=== PATIENT | male | born 1955 | race Hispanic/Latino ===

== ENCOUNTER 2018-05-16 16:37 | Emergency (ER) | payer MEDICARE ==
[2018-05-16 16:39] VITALS: BMI 42.1
[2018-05-16 16:57] VITALS: RESP 18; TEMP 97.9
[2018-05-16] MEDS ORDERED: Bacitracin 500 Units/gm Oint Foilpak UD TOP ONE (16:58)
[2018-05-16] MEDS ORDERED: Morphine 4 mg/ml ISec IVP STA ×2 (16:58→19:16)
[2018-05-16] MEDS ORDERED: Lidocaine 1% Inj (20ml) SC STA (17:00)
--- NOTE | 2018-05-16 17:02 | ED PDOC ---
Arrival/HPI - General Chief Complaint: Trauma Time Seen by Provider: 05/16/18 16:40 Historian: Patient - History of Present Illness Narrative History of Present Illness (Text): 05/16/18 16:58 62 year old male, whose past medical history includes cardiomyopathy, sleep apnea, and A fibrillation, who presents to the Emergency department complaining of rt arm, rt shoulder, and rt rib pain. 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 Patient states he fell on the right side of his upper body and heard a crack. Patient denies any head trauma, LOC, chest pain, shortness of breath, abdominal pain, nausea, vomiting, diarrhea, back pain, neck pain, headache, dizziness, or any other complaint. Time/Duration: Prior to Arrival Symptom Onset: Sudden Symptom Course: Unchanged Activities at Onset: Light Context: Home Past Medical History - Provider Review Nursing Documentation Reviewed: Yes - Cardiac Hx Hypertension: Yes - Pulmonary Hx Chronic Obstructive Pulmonary Disease (COPD): Yes - Psychiatric Hx Depression: Yes Hx Substance Use: No - Surgical History Hx Open Heart Surgery: Yes (with valve replacement) Hx Valve Replacement: Yes Other/Comment: Defibrillator Family/Social History - Physician Review Nursing Documentation Reviewed: Yes Family/Social History: Unknown Family HX Smoking Status: Never Smoked Hx Alcohol Use: No Hx Substance Use: No Allergies/Home Meds Allergies/Adverse Reactions: Allergies furosemide [From Lasix] Allergy (Verified 05/16/18 16:39) ANAPHYLAXIS Penicillins Allergy (Verified 05/16/18 16:39) ANAPHYLAXIS Home Medications: Home Meds Medication Instructions Recorded Confirmed ALPRAZolam [Xanax] 0.25 mg PO DAILY PRN 05/16/18 05/16/18 Budesonide/Formoterol Fumarate 2 puff NEB BID 05/16/18 05/16/18 [Symbicort 160-4.5 Mcg Inhaler] Carvedilol [Coreg] 25 mg PO DAILY 05/16/18 05/16/18 Cetirizine HCl [Zyrtec] 10 mg PO DAILY 05/16/18 05/16/18 FLUoxetine [Prozac] 20 mg PO DAILY 05/16/18 05/16/18 Magnesium Oxide [Mag-Ox] 800 mg PO DAILY 05/16/18 05/16/18 Montelukast [Singulair] 10 mg PO DAILY 05/16/18 05/16/18 Sotalol HCl [Betapace AF] 160 mg PO BID 05/16/18 05/16/18 Spironolactone [Aldactone] 12.5 mg PO DAILY 05/16/18 05/16/18 Warfarin [Coumadin] 4 mg PO DAILY 05/16/18 05/16/18 Review of Systems - Physician Review All systems were reviewed & negative as marked: Yes - Review of Systems Constitutional: Normal ENT: Normal Respiratory: Normal. absent: SOB, Cough Cardiovascular: Normal. absent: Chest Pain Gastrointestinal: Normal. absent: Abdominal Pain, Diarrhea, Nausea, Vomiting Genitourinary Male: Normal. absent: Frequency, Hematuria Musculoskeletal: Other (rt arm/shoulder/rib pain). absent: Back Pain, Neck Pain Skin: Normal. absent: Rash Neurological: Normal. absent: Headache, Dizziness Endocrine: Normal Hemo/Lymphatic: Normal Psychiatric: Normal Physical Exam Vital Signs Reviewed: Yes Vital Signs Temp Pulse Resp BP Pulse Ox 05/16/18 16:54 97.9 F 60 18 134/65 96 Temperature: Afebrile Blood Pressure: Normal Pulse: Regular Respiratory Rate: Normal Appearance: Positive for: Well-Appearing, Non-Toxic, Comfortable Pain Distress: None Mental Status: Positive for: Alert and Oriented X 3 - Systems Exam Head: Present: Atraumatic, Normocephalic Pupils: Present: PERRL Extroacular Muscles: Present: EOMI Conjunctiva: Present: Normal Mouth: Present: Moist Mucous Membranes Neck: Present: Normal Range of Motion Respiratory/Chest: Present: Clear to Auscultation, Good Air Exchange, Other (tenderness to rt mid-lateral ribs; tenderness to rt anterior upper ribs). No: Respiratory Distress, Accessory Muscle Use Cardiovascular: Present: Regular Rate and Rhythm, Normal S1, S2. No: Murmurs Abdomen: No: Tenderness, Distention, Peritoneal Signs Back: Present: Normal Inspection Upper Extremity: Present: Normal Inspection. No: Cyanosis, Edema Lower Extremity: Present: Normal Inspection. No: Edema Neurological: Present: GCS=15, CN II-XII Intact, Speech Normal Skin: Present: Warm, Dry, Laceration (1/2cm laceration to the rt fourth finger tip), Abrasion (abrasion rt 3rd finger; abrasion to rue and left hand). 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 Plan: -- CT Chest -- EKG -- Labs -- Bacitracin -- Lidocaine -- Morphine -- Xray rt elbow -- Xray rt humerus -- Xray rt shoulder -- Reassess and disposition Progress Notes: 05/16/18 17:45 EKG reviewed, shows PAC rhythm at 61 bpm. 05/16/18 18:51 CT Chest reviewed, shows: LUNGS: The lungs appear essentially clear. No pulmonary mass. There is mild scarring lower lungs. There is minimal pleura l thickening at the lung bases. PLEURAL SPACES: No pneumothorax evident. No pleural effusions. Minimal pleural thickening lung bases. HEART: Multichamber enlargement of the heart. Left cardiac patient pacing wires present. Sternotomy wires present. LYMPH NODES: No lymphadenopathy is evident. BONES: Diffuse advanced hypertrophic and degenerative changes thoracic spine. There is no definite acute fracture identified. UPPER ABDOMEN: The upper abdominal solid organs are unremarkable. IMPRESSION: No acute pulmonary parenchymal disease. Scarring both lower lungs. Pleural thickening at the lung bases. Multichamber enlargement of the heart. Atherosclerotic changes. Cardiac patient pacing wires present. Sternotomy wires. Hypertrophic and degenerative changes thoracic spine. 05/16/18 19:09 Both finger wounds washed and irrigated. No need for sutures. Fingers wrapped with non-adhesive gauze. Bacitracin was applied and fingers wrapped. Bacitracin applied to rt arm and left hand. Tetanus ordered. Wound care instructions were given. Incentive spirometer given with instructions. Pt to f/u with PMD and advised to return to the ED if symptoms worsen or any other concern. - Scribe Statement The provider has reviewed the documentation as recorded by the Constanza Betancourt All medical record entries made by the Scribe were at my direction and personally dictated by me. I have reviewed the chart and agree that the record accurately reflects my personal performance of the history, physical exam, medical decision making, and the department course for this patient. I have also personally directed, reviewed, and agree with the discharge instructions and disposition. Disposition/Present on Arrival - Present on Arrival Any Indicators Present on Arrival: No History of DVT/PE: No History of Uncontrolled Diabetes: No Urinary Catheter: No History of Decub. Ulcer: No History Surgical Site Infection Following: None - Disposition Have Diagnosis and Disposition been Completed?: Yes Diagnosis: Rib contusion, Abrasion Disposition: HOME/ ROUTINE Disposition Time: 19:19 Patient Plan: Discharge Patient Problems: Current Active Problems Problem Status Onset Rib contusion Acute Abrasion Acute Condition: IMPROVED Discharge Instructions (ExitCare): Skin Abrasions, Bruised Rib (DC) Additional Instructions: EBONY ALBERTO, thank you for letting us take care of you today. Your provider was Toro Churchill DO and you were treated for Rib Contusions, Abrasions. The emergency medical care you received today was directed at your acute symptoms. If you were prescribed any medication, please fill it and take as directed. It may take several days for your symptoms to resolve. Return to the Emergency Department if your symptoms worsen, do not improve, or if you have any other problems. Please contact your doctor or call one of the physicians/clinics you have been referred to that are listed on the Patient Visit Information form that is included in your discharge packet. Bring any paperwork you were given at discharge with you along with any medications you are taking to your follow up visit. Our treatment cannot replace ongoing medical care by a primary care provider outside of the emergency department. Thank you for allowing the [facility] team to be part of your care today. If you had an X-Ray or CT scan: A Radiologist will review the ED reading if any change in treatment is needed we will contact you. If you had a blood, urine, or wound culture: It will take several days for the results, if any change in treatment is needed we will contact you. If you had an STI test: It will take 48 hours for the results. Please call after 1 week if you have not heard back. Prescriptions: oxyCODONE/Acetaminophen [Percocet 5/325 mg Tab] 1 ea PO Q6 PRN #20 tab PRN Reason: Pain, Moderate (4-7) Referrals: FAMILY PROVIDER,NO [Primary Care Provider] - Follow up with primary Forms: [employer] ([place])
[2018-05-16 17:44] LABS: BASO # 0.03 K/mm3 (0.0-2.0); BASO % 0.2 % (0.0-3.0); EOS # 0.2 (0.0-0.7); EOS % 1.4 % (1.5-5.0); GRAN # 11.04 (1.4-6.5); GRAN % 79.7 % (50.0-68.0); HEMOGLOBIN 14.6 g/dL (14.0-18.0); LYMPH # 1.7 (1.2-3.4); LYMPH % 12.3 % (22.0-35.0); MEAN CELL VOLUME 88.2 fl (80.0-105.0); MEAN CORPUSCULAR HEMOGLOBIN 29.1 pg (25.0-35.0); MEAN PLATELET VOLUME 10.2 fl (7.0-11.0); MONO # 0.9 (0.1-0.6); MONO % 6.4 % (1.0-6.0); RBC 5.01 10^6/uL (3.5-6.1); RED CELL DISTRIBUTION WIDTH 15.1 % (11.5-14.5); WHITE BLOOD COUNT 13.9 10^3/uL (4.5-11.0)
[2018-05-16 17:49] LABS: INR 3.32; PARTIAL THROMBOPLASTIN TIME 37.3 Seconds (25.1-36.5); PROTHROMBIN TIME 38.8 SECONDS (9.4-12.5)
[2018-05-16 17:53] LABS: BLOOD UREA NITROGEN 15 mg/dL (7-21); CALCIUM 9.3 mg/dL (8.4-10.5); GFR NON-AFRICAN AMERICAN > 60
[2018-05-16 17:57] LABS: ALB/GLOB RATIO 0.9 (1.1-1.8); ALT/SGPT 25 U/L (7-56); AST/SGOT 38 U/L (17-59)
[2018-05-16] MEDS ORDERED: TDAP Vaccine 0.5 mL Syr IM ONE (19:05)
[2018-05-16 19:59] VITALS: BP 130/62; PULSE 62; O2SAT 97
--- NOTE | 2018-05-17 07:30 | CT ---
Date of service: 05/16/2018 PROCEDURE: CT Chest without contrast HISTORY: right rib pain r/o fracture COMPARISON: None available. TECHNIQUE: Contiguous axial images were obtained through the chest without intravenous contrast enhancement. Sagittal and coronal reconstructions were performed. Radiation dose: Total exam DLP = 1010.0 mGy-cm. This CT exam was performed using one or more of the following dose reduction techniques: Automated exposure control, adjustment of the mA and/or kV according to patient size, and/or use of iterative reconstruction technique. FINDINGS: LUNGS: Clear lungs. Visualized airway clear MEDIASTINUM: Unremarkable thoracic aorta. No aneurysm. Cardiomegaly. Main pulmonary artery unremarkable. No vascular congestion. No lymphadenopathy. Aortic calcifications. PLEURA: No pleural fluid. No pneumothorax. BONES: No fracture. No destructive lesion. UPPER ABDOMEN: Grossly unremarkable. OTHER FINDINGS: None. IMPRESSION: No acute pathology.
--- NOTE | 2018-05-17 08:48 | RAD ---
Date of service: 05/16/2018 PROCEDURE: Radiographs of the Right Shoulder HISTORY: fall r/o fx COMPARISON: No prior. FINDINGS: BONES: No evidence of acute fracture. JOINTS: Glenohumeral and acromioclavicular joints preserved. Mild osteoarthritis. SOFT TISSUES: Normal. OTHER FINDINGS: None. IMPRESSION: No evidence of acute fracture or dislocation. Mild osteoarthritis.
--- NOTE | 2018-05-17 08:49 | RAD ---
PROCEDURE: Radiographs of the right humerus. HISTORY: fall r/o fx COMPARISON: None. FINDINGS: BONES: Normal. No fracture or focal lesion. SOFT TISSUES: Normal. OTHER FINDINGS: None. IMPRESSION: No evidence of acute fracture or dislocation.
--- NOTE | 2018-05-17 08:52 | RAD ---
Date of service: 05/16/2018 PROCEDURE: Radiographs of the right elbow. HISTORY: fall r/o fx COMPARISON: No prior. FINDINGS: BONES: Normal. No fracture. JOINTS: [id number] SOFT TISSUES: Normal. JOINT EFFUSION: None. OTHER FINDINGS: None. IMPRESSION: No evidence of acute fracture or dislocation. [id number] osteoarthritis. No evidence of joint effusion.
--- NOTE | 2018-05-17 09:16 | CARD ---
APPROVED REPORT Date of service: 05/16/2018 EKG Measurement Heart [id number] <Conclusion> Electronic ventricular pacemaker
== END 2018-05-16 20:30 | disposition home or self-care (01) ==
LOC: ED 16:37
DX: S20.211A Contusion of right front wall of thorax, initial encounter (principal); S60.412A Abrasion of right middle finger, initial encounter; S60.512A Abrasion of left hand, initial encounter; W10.9XXA Fall (on) (from) unspecified stairs and steps, initial encounter; Y92.9 Unspecified place or not applicable; Z23 Encounter for immunization
CPT/HCPCS: 71250; 73030; 73060; 73080; 80053; 83735; 85025; 85610; 85730; 90471; 90715; 93005; 96374; 96376; 99285; J2270